=== PATIENT | female | born 1945 | race Caucasian/White ===

== ENCOUNTER 2020-01-27 20:33 | Emergency (ER) | payer MEDICARE, OTHER ==
[~2020-01-27] VITALS: Ht 165.1 cm; Wt 113.6 kg
[2020-01-27] MEDS ORDERED: ondansetron 4mg rapidly disintigrating tab PO ONE (21:20)
[2020-01-27] MEDS ORDERED: HYDROcodone/acetaminophen 5mg/325mg tablet PO ONE (21:20)
[2020-01-27 21:42] VITALS: BP 137/67
== END 2020-01-27 21:45 | disposition home or self-care (01) ==
LOC: ER 20:33
DX: S80.01XA Contusion of right knee, initial encounter (principal); M54.5 Low back pain; R26.81 Unsteadiness on feet; J44.9 Chronic obstructive pulmonary disease, unspecified; M25.551 Pain in right hip; M25.561 Pain in right knee; W01.198A Fall on same level from slipping, tripping and stumbling with subsequent striking against other object, initial encounter; Y92.89 Other specified places as the place of occurrence of the external cause; Y93.89 Activity, other specified; Y99.8 Other external cause status; R53.1 Weakness
CPT/HCPCS: 70450; 72131; 73502; 73564; 99285

== ENCOUNTER 2020-06-09 02:56 | Inpatient (IN) | payer MEDICARE, OTHER ==
[~2020-06-09] VITALS: Ht 165.1 cm; Wt 102.3 kg
[2020-06-09 03:17] LABS: BASOPHILS % (AUTO) 0.3 % (0-1); EOSINOPHILS % (AUTO) 0.5 % (0-6); HEMATOCRIT 43.6 % (35.0-45.0); HEMOGLOBIN 14.4 g/dl (12.0-16.0); LYMPHOCYTES # (AUTO) 2.7 X10'3 (1.1-4.8); LYMPHOCYTES % (AUTO) 47.9 % (21-51); MEAN CORPUSCULAR HEMOGLOBIN 30.8 PG (27.0-31.0); MEAN CORPUSCULAR HGB CONC 33.2 g/dL (33.0-36.5); MEAN CORPUSCULAR VOLUME 92.8 FL (78-98); MEAN PLATELET VOLUME 7.7 FL (7.4-10.4); MONOCYTES # (AUTO) 0.6 X10'3 (0-0.9); MONOCYTES % (AUTO) 10.2 % (2-12); NEUTROPHILS # (AUTO) 2.3 X10'3 (1.8-7.7); NEUTROPHILS % (AUTO) 41.1 % (42-75); PLATELET COUNT 159 X10'3 (140-440); RED CELL DISTRIBUTION WIDTH 13.5 % (11.5-14.5); WHITE BLOOD COUNT 5.6 X10'3 (4.5-11.0)
[2020-06-09 03:30] LABS: ALANINE AMINOTRANSFERASE 26 U/L (12-78); ALBUMIN 3.4 G/DL (3.4-5.0); ALBUMIN/GLOBULIN RATIO 1.1 (1.1-1.5); ALKALINE PHOSPHATASE 127 IU/L (46-116); ANION GAP 7 (8-16); ASPARTATE AMINO TRANSFERASE 28 U/L (10-37); BILIRUBIN,TOTAL 0.4 MG/DL (0.1-1.0); BLOOD UREA NITROGEN 16 MG/DL (7-18); BUN/CREATININE RATIO 23.2 (6.6-38.0); CALCIUM 9.2 MG/DL (8.5-10.1); CHLORIDE 108 MMOL/L (99-107); CREATININE 0.69 MG/DL (0.40-0.90); GLUCOSE 98 MG/DL (70-104); POTASSIUM 3.8 MMOL/L (3.5-5.1); SODIUM 143 MMOL/L (135-145); TOTAL CARBON DIOXIDE 27.8 MMOL/L (24-32); TOTAL PROTEIN 6.6 G/DL (6.4-8.2); eGFR 83 ML/MIN
[2020-06-09] MEDS ORDERED: aspirin 81mg tab.chew PO ONE (05:35)
[2020-06-09] MEDS ORDERED: diltiazem 5mg/ml 5ml inj. IV ONE ×2 (05:35→06:45)
--- NOTE | 2020-06-09 05:56 | NUR ---
UNABLE TO ASSESS PT AT THIS TIME DUE TO PATIENT LOAD OF er. AWARE OF VITALS
[2020-06-09] MEDS ORDERED: diltiazem-D5W 125mg/125ml 125 ML IV SCH (07:20)
[2020-06-09] MEDS ORDERED: FURO-150 PO (08:21)
[2020-06-09] MEDS ORDERED: GLUC-95 PO (08:21)
[2020-06-09] MEDS ORDERED: WARF4TAB69 PO (08:21)
[2020-06-09] MEDS ORDERED: ZINC220C11 PO (08:21)
[2020-06-09] MEDS ORDERED: MAGN250T11 PO (08:21)
[2020-06-09] MEDS ORDERED: CYAN50008 PO (08:21)
[2020-06-09] MEDS ORDERED: WARF3TAB56 PO (08:21)
[2020-06-09] MEDS ORDERED: POTA10TA19 PO (08:21)
[2020-06-09] MEDS ORDERED: CHOL50004 PO (08:21)
[2020-06-09] MEDS ORDERED: METO1TAB25 PO (08:21)
[2020-06-09] MEDS ORDERED: ASCO500C17 PO (08:21)
[2020-06-09] MEDS ORDERED: ATOR20TA PO (08:21)
[2020-06-09] MEDS ORDERED: TIOT18CA3 (08:21)
[2020-06-09] MEDS ORDERED: acetaminophen 325mg tablet PO PRN ×2 (08:35)
[2020-06-09] MEDS ORDERED: HYDROcodone/acetaminophen 5mg/325mg tablet PO PRN (08:35)
[2020-06-09] MEDS ORDERED: ondansetron/PF 4mg/2ml inj IV PRN (08:35)
[2020-06-09] MEDS ORDERED: mag hydrox/Alum hydrox/simeth 30ml oral suspension PO PRN (08:35)
[2020-06-09] MEDS ORDERED: magnesium hydroxide 30ml (MOM) UD suspension PO PRN (08:35)
[2020-06-09] MEDS ORDERED: morphine 2 MG/ML inj. syringe IV PRN ×2 (08:35)
[2020-06-09] MEDS ORDERED: normal saline 1000ML IV soln IVB ONE (08:40)
[2020-06-09] MEDS ORDERED: acetaminophen 325mg tablet PO ONE (08:40)
--- NOTE | 2020-06-09 08:49 | NUR ---
PATIENT HYPOTENSIVE,ALSO REPORTS DR. DAYANARA JAVED MADE AWARE.
[2020-06-09] MEDS: diltiazem 30mg tablet PO SCH ×3 (08:50→19:53)
[2020-06-09 09:11] LABS: HEMOGLOBIN A1C 5.2 % (4.5-6.2)
[2020-06-09] MEDS ORDERED: METO50TA16 PO (11:30)
--- NOTE | 2020-06-09 12:14 | NUR ---
Patient in room ED 8. I have received report from LANDRY Ramos and had the opportunity to ask questions and assume patient care.
[2020-06-09 12:35] VITALS: BP 131/88
--- NOTE | 2020-06-09 12:35 | NUR ---
Pt arrived to unit on [address] by LANDRY Ramos. Pt ambulated well to bed. 2 RN Skin check completed. Physical assessment completed. VS as follows: 97.5-98% RA-131/88-150-12
[2020-06-09 15:00] VITALS: BP 149/76
--- NOTE | 2020-06-09 15:54 | NUR ---
PAGER ID: [phone] MESSAGE: [id number]: Maral Pena - Pt HR trending 120-130s, have seen it in 150s-160s. Would you like pt on a Cardizem gtt? - My [phone]
[2020-06-09] MEDS ORDERED: warfarin 3mg tablet PO SCH (17:50)
[2020-06-09 18:00] VITALS: BP 116/54
--- NOTE | 2020-06-09 18:18 | NUR ---
Problems reprioritized. Patient report given, questions answered & plan of care reviewed with LANDRY Bernard.
[2020-06-09] MEDS: furosemide 20 MG/2 ML vial IV SCH (19:53)
[2020-06-09] MEDS: ascorbic acid 500mg tablet PO SCH (19:53)
[2020-06-09] MEDS: metoprolol tartrate 50mg tablet PO SCH (19:54)
[2020-06-09] MEDS ORDERED: diltiazem CD 180mg cap (once-daily) PO STA (19:57)
[2020-06-09] MEDS: atorvastatin 20mg tablet PO SCH (20:04)
[2020-06-09 22:00] VITALS: BP 113/53
[2020-06-10] MEDS: diltiazem 30mg tablet PO SCH ×4 (01:24→19:53)
[2020-06-10 02:00] VITALS: BP 112/55
[2020-06-10 06:00] VITALS: BP 117/71
[2020-06-10 06:01] LABS: BASOPHILS % (AUTO) 0.2 % (0-1); EOSINOPHILS % (AUTO) 0.4 % (0-6); HEMATOCRIT 42.7 % (35.0-45.0); HEMOGLOBIN 14.1 g/dl (12.0-16.0); LYMPHOCYTES % (AUTO) 47.3 % (21-51); MEAN CORPUSCULAR HEMOGLOBIN 30.7 PG (27.0-31.0); MEAN PLATELET VOLUME 8.3 FL (7.4-10.4); MONOCYTES # (AUTO) 0.5 X10'3 (0-0.9); MONOCYTES % (AUTO) 10.6 % (2-12); NEUTROPHILS # (AUTO) 1.8 X10'3 (1.8-7.7); NEUTROPHILS % (AUTO) 41.5 % (42-75); PLATELET COUNT 153 X10'3 (140-440); RED BLOOD COUNT 4.59 X10'6 (4.20-5.60); RED CELL DISTRIBUTION WIDTH 13.5 % (11.5-14.5); WHITE BLOOD COUNT 4.3 X10'3 (4.5-11.0)
[2020-06-10 06:29] LABS: ALBUMIN 3.1 G/DL (3.4-5.0); ANION GAP 5 (8-16); BLOOD UREA NITROGEN 16 MG/DL (7-18); CHLORIDE 107 MMOL/L (99-107); GLUCOSE 94 MG/DL (70-104); POTASSIUM 4.2 MMOL/L (3.5-5.1); SODIUM 144 MMOL/L (135-145); TOTAL CARBON DIOXIDE 31.7 MMOL/L (24-32); eGFR 70 ML/MIN
--- NOTE | 2020-06-10 06:30 | NUR ---
Patient in room PCU 3027. I have received report from LANDRY Bernard and had the opportunity to ask questions and assume patient care.
[2020-06-10] MEDS ORDERED: non-formulary drug (Glucosamine HCl/Chondr Su A Na (Cidaflex Tablet) 1 TAB) PO SCH (08:00)
[2020-06-10] MEDS ORDERED: warfarin 4mg tablet PO SCH (08:00)
[2020-06-10] MEDS: CYANOCOBALAMIN 5000 MCG PO SCH (08:00)
[2020-06-10] MEDS ORDERED: zinc sulfate 220mg capsule PO SCH (08:00)
[2020-06-10] MEDS: vitamin D (cholecalciferol) 1,000 unit tablet PO SCH (08:53)
[2020-06-10] MEDS: magnesium oxide 400mg tablet PO SCH (08:54)
[2020-06-10] MEDS: potassium chloride 10mEq ER tablet PO SCH (08:54)
[2020-06-10] MEDS: ascorbic acid 500mg tablet PO SCH ×2 (08:54→20:10)
[2020-06-10] MEDS: furosemide 20 MG/2 ML vial IV SCH (08:55)
[2020-06-10] MEDS: metoprolol tartrate 50mg tablet PO SCH ×2 (08:55→19:54)
[2020-06-10] MEDS ORDERED: DILT-36 PO (09:01)
--- NOTE | 2020-06-10 10:07 | NUR ---
PAGER ID: [phone] MESSAGE: [id number]: Maral Jean - Ambulated pt 75 ft, pt SOB and HR varied fr 90s-160s. HR currently 100-110s resting. -diamond [phone]
[2020-06-10] MEDS ORDERED: diltiazem CD 120mg capsule (once-daily) PO ONE (10:20)
--- NOTE | 2020-06-10 10:21 | NUR ---
New orders from [facility] for cardizem cd 120mg once
[2020-06-10 11:00] VITALS: BP 108/56
--- NOTE | 2020-06-10 13:22 | NUR ---
PAGER ID: [phone] MESSAGE: [id number]: Maral Pena - Ambulated 300ft, not as SOB but HR still in 90-140s. One episode of HR in 180s post Cardizem 120mg - My [phone]
[2020-06-10 15:00] VITALS: BP 138/86
--- NOTE | 2020-06-10 15:06 | NUR ---
PAGER ID: [phone] MESSAGE: [id number]: Maral Pena - Ambulated well, less SOB, HR still uncontrolled ranging 90-150s. Will give 1400 Cardizem dose -My [phone]
[2020-06-10] MEDS ORDERED: digoxin 250mcg/ml 2ml ampule IV ONE ×3 (15:25→23:30)
--- NOTE | 2020-06-10 15:32 | NUR ---
PAGER ID: [phone] MESSAGE: [id number]: Maral Pena - Would you like for discharge orders to be d/c'd or would you like to wait for a later time/date? - diamond [id number] Addendum: 06/10/20 at 1733 by Diamond Mullen RN PAGER ID: [phone] MESSAGE: [id number]: Maral Pena - Post 0.5mg digoxin and ambulation HR remains uncontrolled b/w 90-150s, less SOB. Current resting HR fluctuates up to 120s at times -diamond [id number]
--- NOTE | 2020-06-10 17:36 | NUR ---
PAGER ID: [phone] MESSAGE: [id number]: Maral Jean - Post 0.5mg digoxin and ambulation HR remains uncontrolled b/w 90-150s, less SOB. Current resting HR fluctuates up to 120s at times -diamond [phone]
--- NOTE | 2020-06-10 17:36 | NUR ---
Per Rusu, continue loading dose X2 of digoxin 0.25 IV q4h for tonight and start PO digoxin 0.25mg in AM.
[2020-06-10 18:00] VITALS: BP 122/54
--- NOTE | 2020-06-10 18:13 | NUR ---
Problems reprioritized. Patient report given, questions answered & plan of care reviewed with LANDRY Haskins.
--- NOTE | 2020-06-10 18:30 | NUR ---
Patient in room PCU 3027. I have received report from My ALATORRE and had the opportunity to ask questions and assume patient care.
--- NOTE | 2020-06-10 20:00 | NUR ---
This nurse discussed w/pharmacist patient's medication orders f/20H00 IV Digoxin, PO Metoprolol, and Cardizem. Rhythm is At Fib at 94/min, SBP 122. Suggested that IV Digoxin only be given now, 20H00 Cardizem and Metoprolol doses held. IV Dig admin as ordered.
[2020-06-10 22:00] VITALS: BP 107/48
[2020-06-10] MEDS: atorvastatin 20mg tablet PO SCH (22:24)
[2020-06-11] VITALS (7 sets, daily range): BP systolic 105–157; BP diastolic 55–80
[2020-06-11] MEDS: diltiazem 30mg tablet PO SCH ×4 (02:32→20:21)
[2020-06-11 05:40] LABS: BASOPHILS % (AUTO) 0.1 % (0-1); EOSINOPHILS % (AUTO) 0.7 % (0-6); HEMATOCRIT 42.9 % (35.0-45.0); HEMOGLOBIN 14.2 g/dl (12.0-16.0); LYMPHOCYTES # (AUTO) 1.7 X10'3 (1.1-4.8); LYMPHOCYTES % (AUTO) 45.4 % (21-51); MEAN CORPUSCULAR HEMOGLOBIN 30.5 PG (27.0-31.0); MEAN CORPUSCULAR HGB CONC 33.1 g/dL (33.0-36.5); MEAN CORPUSCULAR VOLUME 92.3 FL (78-98); MEAN PLATELET VOLUME 8.2 FL (7.4-10.4); MONOCYTES # (AUTO) 0.5 X10'3 (0-0.9); MONOCYTES % (AUTO) 12.7 % (2-12); NEUTROPHILS # (AUTO) 1.5 X10'3 (1.8-7.7); NEUTROPHILS % (AUTO) 41.1 % (42-75); PLATELET COUNT 139 X10'3 (140-440); RED BLOOD COUNT 4.65 X10'6 (4.20-5.60); RED CELL DISTRIBUTION WIDTH 13.1 % (11.5-14.5); WHITE BLOOD COUNT 3.7 X10'3 (4.5-11.0)
[2020-06-11 05:47] LABS: ANION GAP 6 (8-16); BLOOD UREA NITROGEN 16 MG/DL (7-18); BUN/CREATININE RATIO 20.3 (6.6-38.0); CALCIUM 9.3 MG/DL (8.5-10.1); CHLORIDE 107 MMOL/L (99-107); CREATININE 0.79 MG/DL (0.40-0.90); GLUCOSE 96 MG/DL (70-104); POTASSIUM 4.1 MMOL/L (3.5-5.1); SODIUM 143 MMOL/L (135-145); TOTAL CARBON DIOXIDE 30.1 MMOL/L (24-32); eGFR 71 ML/MIN
--- NOTE | 2020-06-11 06:09 | NUR ---
Patient in room PCU 3027. I have received report from LANDRY Haskins and had the opportunity to ask questions and assume patient care.
--- NOTE | 2020-06-11 06:52 | NUR ---
Problems reprioritized. Patient report given, questions answered & plan of care reviewed with Duane ALATORRE.
[2020-06-11] MEDS: digoxin 250mcg (0.25mg) tablet PO SCH (07:06)
[2020-06-11] MEDS: CYANOCOBALAMIN 5000 MCG PO SCH (08:00)
[2020-06-11] MEDS ORDERED: digoxin 250mcg/ml 2ml ampule IV SCH (08:00)
[2020-06-11] MEDS: magnesium oxide 400mg tablet PO SCH (08:29)
[2020-06-11] MEDS: vitamin D (cholecalciferol) 1,000 unit tablet PO SCH (08:29)
[2020-06-11] MEDS: potassium chloride 10mEq ER tablet PO SCH (08:29)
[2020-06-11] MEDS: ascorbic acid 500mg tablet PO SCH ×2 (08:30→20:21)
[2020-06-11] MEDS: furosemide 20 MG/2 ML vial IV SCH (08:30)
[2020-06-11] MEDS: zinc sulfate 220mg capsule PO SCH (08:32)
--- NOTE | 2020-06-11 08:50 | NUR ---
PAGER ID: [phone] MESSAGE: [id number] Maral Pena: Do you want her getting both Cardizem and Metoprolol. LANDRY Zepeda Ext [phone]
--- NOTE | 2020-06-11 09:38 | NUR ---
Refusing to take both Cardizem and Beta-daren at the same time, paged
[2020-06-11] MEDS: metoprolol tartrate 50mg tablet PO SCH ×2 (09:44→20:21)
--- NOTE | 2020-06-11 16:14 | NUR ---
PAGER ID: [phone] MESSAGE: [id number] Maral Pena: Walked 300ft heart would jump to 120's for part of the walk. When she stopped to rest in the middle it would go back down to the 90's. Do you want the Cardizem up to 60mg? LANDRY Zepeda Ext [phone]
--- NOTE | 2020-06-11 18:08 | NUR ---
Problems reprioritized. Patient report given, questions answered & plan of care reviewed with LANDRY Lopez.
--- NOTE | 2020-06-11 18:14 | NUR ---
Patient in room PCU 3028. I have received report from Duane ALATORRE and had the opportunity to ask questions and assume patient care.
[2020-06-11] MEDS: atorvastatin 20mg tablet PO SCH (20:22)
[2020-06-11] MEDS ORDERED: warfarin 3mg tablet PO ONE (21:00)
[2020-06-12 02:00] VITALS: BP 125/81
[2020-06-12] MEDS: diltiazem 30mg tablet PO SCH ×3 (02:07→13:21)
[2020-06-12 05:55] LABS: ALBUMIN 3.1 G/DL (3.4-5.0); ANION GAP 4 (8-16); BLOOD UREA NITROGEN 19 MG/DL (7-18); BUN/CREATININE RATIO 24.4 (6.6-38.0); CALCIUM 9.6 MG/DL (8.5-10.1); CHLORIDE 106 MMOL/L (99-107); CREATININE 0.78 MG/DL (0.40-0.90); GLUCOSE 89 MG/DL (70-104); POTASSIUM 4.1 MMOL/L (3.5-5.1); SODIUM 142 MMOL/L (135-145); TOTAL CARBON DIOXIDE 31.7 MMOL/L (24-32); eGFR 72 ML/MIN
[2020-06-12 06:00] LABS: BASOPHILS % (AUTO) 0 % (0-1); EOSINOPHILS % (AUTO) 0.4 % (0-6); HEMATOCRIT 43.6 % (35.0-45.0); HEMOGLOBIN 14.5 g/dl (12.0-16.0); LYMPHOCYTES # (AUTO) 2.1 X10'3 (1.1-4.8); LYMPHOCYTES % (AUTO) 43.8 % (21-51); MEAN CORPUSCULAR HEMOGLOBIN 30.7 PG (27.0-31.0); MEAN CORPUSCULAR HGB CONC 33.3 g/dL (33.0-36.5); MEAN CORPUSCULAR VOLUME 92.1 FL (78-98); MEAN PLATELET VOLUME 8.2 FL (7.4-10.4); MONOCYTES # (AUTO) 0.6 X10'3 (0-0.9); MONOCYTES % (AUTO) 12.3 % (2-12); NEUTROPHILS # (AUTO) 2.1 X10'3 (1.8-7.7); NEUTROPHILS % (AUTO) 43.5 % (42-75); PLATELET COUNT 159 X10'3 (140-440); RED BLOOD COUNT 4.74 X10'6 (4.20-5.60); RED CELL DISTRIBUTION WIDTH 12.9 % (11.5-14.5); WHITE BLOOD COUNT 4.8 X10'3 (4.5-11.0)
--- NOTE | 2020-06-12 06:23 | NUR ---
Problems reprioritized. Patient report given, questions answered & plan of care reviewed with Netta ALATORRE.
--- NOTE | 2020-06-12 06:27 | NUR ---
Patient in room PCU 3028. I have received report from Jessica ALATORRE and had the opportunity to ask questions and assume patient care.
[2020-06-12 07:00] VITALS: BP 152/63
[2020-06-12] MEDS: CYANOCOBALAMIN 5000 MCG PO SCH (08:00)
[2020-06-12] MEDS: furosemide 20 MG/2 ML vial IV SCH (08:24)
[2020-06-12] MEDS: vitamin D (cholecalciferol) 1,000 unit tablet PO SCH (08:25)
[2020-06-12] MEDS: zinc sulfate 220mg capsule PO SCH (08:25)
[2020-06-12] MEDS: ascorbic acid 500mg tablet PO SCH (08:25)
[2020-06-12] MEDS: magnesium oxide 400mg tablet PO SCH (08:25)
[2020-06-12] MEDS: potassium chloride 10mEq ER tablet PO SCH (08:25)
[2020-06-12 08:26] VITALS: BP_SYST 140
[2020-06-12] MEDS: metoprolol tartrate 50mg tablet PO SCH (08:26)
[2020-06-12] MEDS: digoxin 250mcg (0.25mg) tablet PO SCH (08:26)
[2020-06-12] MEDS ORDERED: DILT30TA5 PO (10:39)
--- NOTE | 2020-06-12 13:38 | NUR ---
Patient stable for discharge per MD order. All necessary discharge information and education reviewed with patient before signing necessary paperwork. IV discontinued with catheter in tact, inside steward/stewardess removed and returned, all patient belongings packed up and sent with patient. Rx sent to [facility] [place]. Patient picked up by in private vehicle.
[2020-06-12] MEDS ORDERED: warfarin 3mg tablet PO ONE (21:00)
== END 2020-06-12 13:22 | disposition home or self-care (01) | DRG 310 ==
LOC: ER 02:56 → ED HOLD 08:32 → PCU 3S 13:04
PROVIDERS: ADMIT Internal Medicine; ATTEND Internal Medicine
DX: I48.0 Paroxysmal atrial fibrillation (principal); E78.5 Hyperlipidemia, unspecified; R03.0 Elevated blood-pressure reading, without diagnosis of hypertension; I27.81 Cor pulmonale (chronic); I50.810 Right heart failure, unspecified; J44.9 Chronic obstructive pulmonary disease, unspecified; Z79.01 Long term (current) use of anticoagulants; Z87.891 Personal history of nicotine dependence; Z90.710 Acquired absence of both cervix and uterus; Z79.899 Other long term (current) drug therapy
CPT/HCPCS: 36415; 71045; 80048; 80053; 83036; 83880; 84484; 85025; 85610; 87081; 93005; 93308; 96374; 96376; 99285; G0378; J1160; J1940; J3490; J7030